=== PATIENT | male | born 1980 | race Caucasian/White ===

== ENCOUNTER 2017-03-09 08:23 | Emergency (ER) | payer OTHER ==
[~2017-03-09] VITALS: Ht 185.4 cm; Wt 93.6 kg
[2017-03-09 09:28] VITALS: BP 146/74
== END 2017-03-09 09:28 | disposition home or self-care (01) ==
LOC: ED 08:23
DX: M54.41 Lumbago with sciatica, right side (principal); Z90.89 Acquired absence of other organs
CPT/HCPCS: J1170; J1885; J7512; Q0162

== ENCOUNTER 2018-02-13 14:34 | Emergency (ER) | payer OTHER ==
[~2018-02-13] VITALS: Ht 185.4 cm; Wt 90.7 kg
[2018-02-13 14:44] VITALS: Ht 185.4 cm; Wt 90.7 kg
[2018-02-13 17:47] VITALS: BP 131/69
== END 2018-02-13 17:47 | disposition home or self-care (01) ==
LOC: ED 14:34
DX: S39.012A Strain of muscle, fascia and tendon of lower back, initial encounter (principal); G89.29 Other chronic pain; Z90.49 Acquired absence of other specified parts of digestive tract; F17.210 Nicotine dependence, cigarettes, uncomplicated; Z98.890 Other specified postprocedural states; X50.0XXA Overexertion from strenuous movement or load, initial encounter; Y93.89 Activity, other specified; Y92.89 Other specified places as the place of occurrence of the external cause; Y99.8 Other external cause status
CPT/HCPCS: J1885

== ENCOUNTER 2018-12-22 12:27 | Emergency (ER) | payer OTHER ==
[~2018-12-22] VITALS: Ht 185.4 cm; Wt 94.8 kg
[2018-12-22 12:32] VITALS: Ht 185.4 cm; Wt 94.8 kg
[2018-12-22 14:03] VITALS: BP 172/91
== END 2018-12-22 14:13 | disposition home or self-care (01) ==
LOC: ED 12:27
DX: M54.16 Radiculopathy, lumbar region (principal); M51.36 Other intervertebral disc degeneration, lumbar region; S50.811D Abrasion of right forearm, subsequent encounter; F43.10 Post-traumatic stress disorder, unspecified; F17.210 Nicotine dependence, cigarettes, uncomplicated; Z90.49 Acquired absence of other specified parts of digestive tract; Z98.890 Other specified postprocedural states; X58.XXXA Exposure to other specified factors, initial encounter; Y93.89 Activity, other specified; Y92.89 Other specified places as the place of occurrence of the external cause; Y99.8 Other external cause status
CPT/HCPCS: 99406; J1100; J1885